=== PATIENT | female | born 1990 | race American Indian/Alaskan Native ===

== ENCOUNTER 2017-12-29 10:19 | Emergency (ER) | payer MEDICAID, OTHER ==
[2017-12-29 10:27] VITALS: BMI 35.4
[2017-12-29 10:29] VITALS: BP 124/89; PULSE 92; RESP 17; TEMP 99.1; O2SAT 99
--- NOTE | 2017-12-29 11:08 | ED PDOC ---
HPI: Female Pain Time Seen by Provider: 12/29/17 10:31 Chief Complaint (Nursing): Female Genitourinary Chief Complaint (Provider): bleeding in preg History Per: Patient Additional Complaint(s): Patient states she is currently 13 weeks . Complaints of vaginal bleeding beginning yesterday. States she was seen [place] [facility] [place]. Sex day prior Past Medical History Vital Signs: Last Vital Signs Temp 99.1 F 12/29/17 10:27 Pulse 92 H 12/29/17 10:27 Resp 17 12/29/17 10:27 BP 124/89 12/29/17 10:27 Pulse Ox 99 12/29/17 10:27 - Immunization History Hx Tetanus Toxoid Vaccination: No Hx Influenza Vaccination: No Hx Pneumococcal Vaccination: No - Home Medications Home Medications: Ambulatory Orders Medication Instructions Recorded Acetaminophen [Tylenol] 2 tab PO Q6H PRN #30 tab 06/16/14 Clindamycin 1% [Cleocin] 1 apful EXT BID #120 ml 06/16/14 Ibuprofen 600 mg PO Q6H PRN #15 tab 06/16/14 Oseltamivir Phosphate [Tamiflu] 75 mg PO BID #9 cap 06/16/14 - Allergies Allergies/Adverse Reactions: Allergies Allergy/AdvReac Type Severity Reaction Status Date / Time No Known Allergies Allergy Verified 06/16/14 15:31 - ECG O2 Sat by Pulse Oximetry: 99 Disposition - Disposition
[2017-12-29 11:37] LABS: BASO % 0.3 % (0.0-2.0); EOS % 0.8 % (0.0-4.0); LYMPH # 1.8 K/uL (1.0-4.3); LYMPH % 32.7 % (20.0-40.0); MEAN CELL VOLUME 89.6 fl (81.0-99.0); MEAN CORPUSCULAR HEMOGLOBIN 30.8 pg (27.0-31.0); MEAN CORPUSCULAR HGB CONC 34.4 g/dL (33.0-37.0); MEAN PLATELET VOLUME 8.5 fl (7.2-11.7); MONO # 0.3 K/uL (0.0-0.8); MONO % 5.5 % (0.0-10.0); NEUT # 3.3 K/uL (1.8-7.0); NEUT % 60.7 % (50.0-75.0); NRBC % 0.1 % (0.0-0.0); RBC 4.22 Mil/uL (3.80-5.20); RED CELL DISTRIBUTION WIDTH 13.6 % (11.5-14.5); WHITE BLOOD COUNT 5.4 K/uL (4.8-10.8)
--- NOTE | 2017-12-29 13:05 | US ---
Date of service: 12/29/2017 PROCEDURE: Obstetrical ultrasound examination HISTORY: bleeding in preg COMPARISON: Not available TECHNIQUE: Transabdominal FINDINGS: There is a single live intrauterine gestation identified. Cephalic presentation. Grossly normal quantity of amniotic fluid. heart rate is 161 beats per minute. Fundal placenta. No evidence of placenta previa. Cervix closed and measures approximately 4 cm in length. No perigestational hemorrhage identified. biometry demonstrates ultrasound age of 13 weeks 3 days. The MATTEO by ultrasound is 07/03/2018. anatomic evaluation is grossly limited by the early age of gestation IMPRESSION: Single live intrauterine gestation of approximately 13 weeks 3 days without gross anatomic abnormality. Evaluation of anatomy is grossly limited due to early gestational age. heart rate 161. Cervix long and closed. Fundal placenta. No previa.
== END 2017-12-29 13:24 | disposition home or self-care (01) ==
LOC: H.ER 10:19
DX: O20.9 Hemorrhage in early pregnancy, unspecified (principal); Z3A.13 13 weeks gestation of pregnancy

== ENCOUNTER 2017-12-31 08:52 | Emergency (ER) | payer OTHER ==
[2017-12-31 08:58] VITALS: BMI 35.6
[2017-12-31] MEDS ORDERED: Lactated Ringer's 1,000 ML IV SCH (09:45)
--- NOTE | 2017-12-31 10:12 | ED PDOC ---
HPI: Abdomen Time Seen by Provider: 12/31/17 09:25 Chief Complaint (Nursing): Abdominal Pain History Per: Patient Additional Complaint(s): Pt. states on Tuesday she developed vaginal bleeding. States she is currently 13 weeks . Pt. [place] [facility] [place] and blood work. Pt. states she was informed that all was normal and subsequently discharged. Bl eeding continued the following day and she was advised by Dr. Anguiano's office (her OBGYN) to come to [facility] ED. She had another US done along with blood work. All was normal therefore she was discharged. She f/u in Dr. Anguiano's office yesterday and had another US and was told that baby was fine and had normal HR. This morning she developed R sided pelvic pain. States bleeding is still present but has decreased since the onset. Reports no hx of previous ectopic pregnancies. Denies fever, dysuria, hematuria, vomiting, diarrhea. Abnormal Vaginal Bleeding: Yes Last Menstral Period: 09/29/2017 : 3 Para: 1 Miscarriage: 1 (elective ) Past Medical History Reviewed: Historical Data, Nursing Documentation, Vital Signs Vital Signs: Last Vital Signs Temp 98.8 F 12/31/17 08:56 Pulse 113 H 12/31/17 08:56 Resp 16 12/31/17 08:56 BP 114/65 12/31/17 08:56 Pulse Ox 100 12/31/17 08:56 - Surgical History Surgical History: No Surg Hx - Family History Family History: States: No Known Family Hx - Immunization History Hx Tetanus Toxoid Vaccination: No Hx Influenza Vaccination: No Hx Pneumococcal Vaccination: No - Home Medications Home Medications: Ambulatory Orders Medication Instructions Recorded Acetaminophen [Tylenol] 2 tab PO Q6H PRN #30 tab 06/16/14 Oseltamivir Phosphate [Tamiflu] 75 mg PO BID #9 cap 06/16/14 RX: Clindamycin 1% [Cleocin] 1 apful EXT BID #120 ml 06/16/14 RX: Ibuprofen 600 mg PO Q6H PRN #15 tab 06/16/14 Doxylamine/Pyridoxine HCl (B6) 1 each PO HS PRN #30 tablet. 12/31/17 [Bart Almonte 10-10 mg Tablet] - Allergies Allergies/Adverse Reactions: Allergies Allergy/AdvReac Type Severity Reaction Status Date / Time No Known Allergies Allergy Verified 06/16/14 15:31 Review of Systems ROS Statement: Except As Marked, All Systems Reviewed And Found Negative Genitourinary Female: Positive for: Vaginal Bleeding, Pelvic Pain Physical Exam - Physical Exam Appears: Positive for: Well, Non-toxic, In Acute Distress (mild painful distress) Skin: Positive for: Normal Color, Warm. Negative for: Rash Eye Exam: Positive for: Normal appearance Respiratory: Positive for: Normal Breath Sounds. Negative for: Respiratory Distress Gastrointestinal/Abdominal: Positive for: Normal Exam, Soft, Tenderness (R sided pelvic tenderness). Negative for: Guarding, Rebound Back: Positive for: Normal Inspection. Negative for: L CVA Tenderness, R CVA Tenderness Neurologic/Psych: Positive for: Alert, Oriented (x3). Negative for: Aphasia, Facial Droop - Laboratory Results Result Diagrams: 12/31/17 12:30 12/31/17 12:30 - ECG O2 Sat by Pulse Oximetry: 100 - Progress ED Course And Treament: Labs, TVUS ordered, IV LR bolus x 1 ordered.. Previous records reviewed along with corresponding diagnostic results. 1039 Pt. began vomiting after taking Tylenol. Reglan 10mg IVPB ordered. 1310 On re-evaluation, pt. sleeping comfortably. Easily arousable. Reports complete relief of abd/pelvic pain and nausea. States she is feeling much better. Pending US. Further reports that her blood type is A+ and she has records with [place] [facility] confirming her blood type to be A+. 1330 TVUS: Single intrauterine live with ultrasound estimated gestational age of 14 weeks 0 day +/-1 week 0 day. Pt. informed of results. Advised to f/u with Dr. Anguiano for further evaluation. Case d/w Dr. Rashid, OBGYN salon designer, who agrees with plan and care. Disposition - Clinical Impression Clinical Impression: Abdominal pain in - Patient ED Disposition Is Patient to be Admitted: No - Disposition Referrals: Jorge Alberto Slater, DNP, PROVIDER RELATIONS ADVOCATE [Primary Care Provider] - Phani Anguiano MD [Staff Provider] - Disposition: Routine/Home Disposition Time: 13:40 Condition: IMPROVED Prescriptions: Doxylamine/Pyridoxine HCl (B6) [Bart Almonte 10-10 mg Tablet] 1 each PO HS PRN #3 0 tablet. PRN Reason: Nausea/Vomiting Instructions: Nausea and Vomiting of (DC), Symptoms, Bleeding With (DC) Forms: [facility] (Bahraini) Print Language: KAZAKH
[2017-12-31 12:56] LABS: BASO % 0.2 % (0.0-2.0); HEMOGLOBIN 13.5 g/dL (12.0-16.0); LYMPH # 0.8 K/uL (1.0-4.3); LYMPH % 6.4 % (20.0-40.0); MEAN CELL VOLUME 90.2 fl (81.0-99.0); MEAN CORPUSCULAR HEMOGLOBIN 30.2 pg (27.0-31.0); MEAN CORPUSCULAR HGB CONC 33.5 g/dL (33.0-37.0); MEAN PLATELET VOLUME 9.4 fl (7.2-11.7); MONO # 0.6 K/uL (0.0-0.8); MONO % 5.1 % (0.0-10.0); NEUT # 10.8 K/uL (1.8-7.0); NEUT % 88.3 % (50.0-75.0); PLATELET COUNT 244 K/uL (130-400); RBC 4.48 Mil/uL (3.80-5.20); RED CELL DISTRIBUTION WIDTH 13.5 % (11.5-14.5); WHITE BLOOD COUNT 12.2 K/uL (4.8-10.8)
[2017-12-31 13:05] LABS: ALBUMIN 3.8 g/dL (3.5-5.0); ALT/SGPT 24 U/L (9-52); AST/SGOT 20 U/L (14-36); BLOOD UREA NITROGEN 6 mg/dl (7-17); CALCIUM 9.4 mg/dL (8.4-10.2); GFR NON-AFRICAN AMERICAN > 60
--- NOTE | 2017-12-31 13:33 | US ---
Date of service: 12/31/2017 PROCEDURE: OB Pelvic Ultrasound HISTORY: R sided pelvic pain LMP: 09/29/2017 COMPARISON: Comparison is made with 12/29/2017 FINDINGS: UTERUS: Gestational sac: Single intrauterine gestation. Heart rate: 167 bpm. age (Ultrasound estimated): 14 weeks 0 day +/-1 week 0 day Cathy-gestational hemorrhage: None. Date of delivery (Ultrasound estimated) : 07/01/2018 Placenta is noted at the posterior wall CERVIX: Measures 4.1 cm. Long and closed. No cervical abnormality seen. RIGHT OVARY: Measures 3.4 x 2.5 x 2.8 cm. No mass lesion. Normal flow. LEFT OVARY: Measures 3.2 x 2.7 x 2.7 cm. No solid mass. Normal flow. FREE FLUID: None. OTHER FINDINGS: None. IMPRESSION: Single intrauterine live with ultrasound estimated gestational age of 14 weeks 0 day +/-1 week 0 day. Estimated date of delivery by ultrasound is 07/01/2018.
[2017-12-31 14:16] VITALS: RESP 17
[2017-12-31 14:40] LABS: BANDS 2 % (0-2); LYMPHOCYTE 7 % (20-50); MONOCYTE 2 % (0-10); NEUTROPHIL 89 % (42-75); PLATELET ESTIMATE NORMAL (NORMAL); TOTAL CELLS COUNTED 100
[2017-12-31 14:41] LABS: ANISOCYTOSIS SLIGHT; OVALOCYTES SLIGHT; POIKILOCYTOSIS SLIGHT; TEARDROP CELLS SLIGHT
[2017-12-31 15:13] VITALS: BP 102/68; PULSE 85; TEMP 98.3
[2017-12-31 19:14] VITALS: O2SAT 100
== END 2017-12-31 15:13 | disposition home or self-care (01) ==
LOC: H.ER 08:52
DX: O26.892 Other specified pregnancy related conditions, second trimester (principal); R10.2 Pelvic and perineal pain; Z3A.14 14 weeks gestation of pregnancy; R11.0 Nausea
CPT/HCPCS: 76815; 80053; 81025; 84702; 85025; 86850; 86900; 99282; J2765; J7120

== ENCOUNTER 2018-06-29 16:47 | Inpatient (IN) | payer OTHER ==
[2018-06-29] MEDS: Lactated Ringer's 1,000 ML IV SCH (17:00)
[2018-06-29 17:04] VITALS: BMI 39.4
[2018-06-29 18:03] LABS: BASO % 0.3 % (0.0-2.0); EOS # 0.1 K/uL (0.0-0.7); HEMOGLOBIN 11.7 g/dL (12.0-16.0); LYMPH # 2.2 K/uL (1.0-4.3); LYMPH % 35.1 % (20.0-40.0); MEAN CELL VOLUME 91.2 fl (81.0-99.0); MEAN PLATELET VOLUME 9.8 fl (7.2-11.7); MONO # 0.7 K/uL (0.0-0.8); MONO % 11.2 % (0.0-10.0); NEUT # 3.3 K/uL (1.8-7.0); NEUT % 52.4 % (50.0-75.0); NRBC % 0.3 % (0.0-0.0); RBC 3.79 Mil/uL (3.80-5.20); RED CELL DISTRIBUTION WIDTH 13.8 % (11.5-14.5); WHITE BLOOD COUNT 6.4 K/uL (4.8-10.8)
[2018-06-29] MEDS ORDERED: Penicillin G Potassium 5 MU in Sodium Chloride 0.9% 50 ML IVPB ONE (19:20)
[2018-06-30] MEDS: Lactated Ringer's 1,000 ML IV SCH ×2 (01:00→09:02)
[2018-07-01] MEDS: Lactated Ringer's 1,000 ML IV ONE ×2 (03:00→04:00)
[2018-07-01] MEDS ORDERED: Bupivacaine HCl 0.5% PF (30 ml) Inj ONE (04:21)
[2018-07-01] MEDS ORDERED: Fentanyl/Bupivacaine HCl 250 ML EPI ONE (04:22)
[2018-07-01] MEDS: Lactated Ringer's 1,000 ML IV SCH (05:21)
[2018-07-01] MEDS ORDERED: Oxytocin 30 UNIT in NS 500 ml 30 UNITS/500 ML BAG IV ONE ×2 (09:19→09:32)
[2018-07-01] MEDS ORDERED: Penicillin G Potassium 5 MU in Sodium Chloride 0.9% 50 ML IVPB ONE (10:07)
[2018-07-01] MEDS ORDERED: Penicillin G 5 Million Unit Vial IVPB ONE (11:03)
[2018-07-01] MEDS ORDERED: Sodium Chloride 0.9% 1,000 ML IV SCH (13:00)
--- NOTE | 2018-07-01 13:04 | OBPN ---
Datetime: 07/01/2018 12:50 IP Progress Impression: Reassuring heart rate IP Informed Consent Obtain: Vaginal Delivery IP Procedures: Intrauterine Pressure Catheter; Amnio Infusion IP Progress Plan: Continue present management; Augmentation; Anticipate Vaginal Delivery Pool Provider: Positive Membranes, Provider: Ruptured Amniotic Fluid Color, Provider: Clear Contraction Comments Provider: 4-5m FHR - Baseline A Provider: 130 Presentation-Admit: Vertex IP Progress Note Comment: NOtified that she had SROM at 10:30am. She was 5-6cm. Pitocin at 1mil/h. ..had a Temp 100.0. She has some variable decels. SVE 7-8cm Assessment: Active phase of labor Variable decels with recovery - Hx Oligohydramnios Hx GBS bacteruria PLAN: discussion with pt about condition, labor progresss,medications with risks/complications. S he understood and her questions answered. IUPC placed; start amnioinfusion NS over 1h then 125cc/h.. .O2; left leteral position...monitor progress NICHD Accel Fetus A IP Provider: [id number] FHR Category Provider Fetus A: Category II NICHD Variability Prov Fetus A: Moderate 6-25bpm Dilatation, Provider: 7-8 Effacement, Provider: 100 Station, Provider: -1 NICHD Decel Fetus A IP Provider: Variable Datetime: 06/30/2018 08:55 IP Progress Impression Other: Induction for oligohydramnios Datetime: 06/29/2018 17:14 Vital Signs Provider: Reviewed; Within Normal Limits Datetime: 06/29/2018 17:09 Gestation - Est Wks by US: 39.0
[2018-07-01] MEDS ORDERED: Lidocaine 1% Inj (20ml) ONE ×2 (14:19→15:16)
[2018-07-01] MEDS ORDERED: Oxycodone/Acetaminophen 5/325 mg Tab PO PRN ×4 (15:56→18:58)
[2018-07-01] MEDS ORDERED: Benzocaine/Menthol SPRAY TOP PRN ×2 (15:56→18:58)
[2018-07-01] MEDS: OXYTOCIN/0.9 % NS 20 UNIT/1,000 ML BAG IV SCH (16:20)
[2018-07-01] MEDS ORDERED: SODIUM CHLORIDE 0.9% IV ONE (18:26)
[2018-07-01] MEDS ORDERED: [UNRECOGNIZED DRUG - OTHER] IV ONE (18:26)
[2018-07-01] MEDS ORDERED: OXYTOCIN/0.9 % NS 20 UNIT/1,000 ML BAG IV SCH (18:58)
[2018-07-02 08:01] LABS: BASO % 0.4 % (0.0-2.0); EOS # 0.1 K/uL (0.0-0.7); EOS % 0.6 % (0.0-4.0); HEMOGLOBIN 12.4 g/dL (12.0-16.0); LYMPH # 2.7 K/uL (1.0-4.3); MEAN CELL VOLUME 92.7 fl (81.0-99.0); MEAN CORPUSCULAR HEMOGLOBIN 30.7 pg (27.0-31.0); MEAN CORPUSCULAR HGB CONC 33.1 g/dL (33.0-37.0); MEAN PLATELET VOLUME 9.5 fl (7.2-11.7); MONO # 0.9 K/uL (0.0-0.8); MONO % 8.2 % (0.0-10.0); NEUT % 65.8 % (50.0-75.0); NRBC % 0.1 % (0.0-0.0); RBC 4.03 Mil/uL (3.80-5.20); RED CELL DISTRIBUTION WIDTH 14.1 % (11.5-14.5); WHITE BLOOD COUNT 10.6 K/uL (4.8-10.8)
--- NOTE | 2018-07-02 10:11 | OBDS ---
DELIVERY PERSONNEL Delivery Doctor: Yusuf Naik DO Supervisor Pre Wave: Zuly Iqbal RN MATERNAL INFORMATION Delivery Anesthesia: Epidural Medications in Delivery: pitocin 30units in IV 0.9%NS 500ml infusing at 999/hr Placenta Cultured: No Maternal Complications: None Provider Comments: Over intact perineum, of live male from [facility] presentation. Two losse nuchal cords noted and reduced. Infant was placed on mother's chest for skin to skin. 9,9. Placenta was deliveed intact spontaneously. She remained stable Fluid measurement prio to delivey 600cc...after delivery 700cc...EBL 100cc. LABOR SUMMARY EDC: 07/06/2018 00:00 No. Babies in Womb: 1 Attempted: No Labor Anesthesia: Epidural LABOR INFORMATION Reason for Induction: Oligohydramnios Onset of Labor: 07/01/2018 08:45 Complete Dilatation: 07/01/2018 15:00 Cervical Ripening Agents: Cytotec @ Oxytocin: Induction Group B Beta Strep: Positive Antibiotics # of Doses: 2 Antibiotics Time of Last Dose: 1500 Steroids Given: None Reason Steroids Not Administered: Not Applicable MEMBRANES Membranes Rupture Method: Spontaneous Rupture of Membranes: 07/01/2018 10:43 Length of Rupture (hrs): 4.93 Amniotic Fluid Color: Clear Amniotic Fluid Amount: Small Amniotic Fluid Odor: Normal STAGES OF LABOR Stage 1 hrs: 6 Stage 1 min: 15 Stage 2 hrs: 0 Stage 2 min: 39 Stage 3 hrs: 0 Stage 3 min: 12 Total Time in Labor hrs: 7 Total Time in Labor min: 6 VAGINAL DELIVERY Episiotomy: None Laceration Extension: N/A Laceration Repair: No Initial Vag Sponge Count: 5 laps with ring Final Vag Sponge Count: 5 laps with ring Initial Vag Sharps Count: 1 needle Final Vag Sharps Count: 1 needle Sponge Count Correct: Yes Sharps Count Correct: Yes Count Comment: One syringe, count correct and acknowledged by Dr. Naik. BABY A INFORMATION Delivery Date/Time: 07/01/2018 15:39 Method of Delivery: Vaginal Born in Route : No : N/A Forceps: N/A Vacuum Extraction: N/A Shoulder Dystocia : No SHOULDER DYSTOCIA BABY A Infant Delivery Date/Time: 07/01/2018 15:39 PRESENTATION/POSITION BABY A Presentation: Cephalic Cephalic Presentation: Vertex Breech Presentation: N/A PLACENTA INFORMATION BABY A Placenta Delivery Time : 07/01/2018 15:51 Placenta Method of Delivery: Spontaneous Placenta Status: Delivered SCORES BABY A Heart Rate 1 min: >100 bpm Resp Effort 1 min: Good Cry Reflex Irritability 1 min: Cough or Sneeze or Pulls Away Muscle Tone 1 min: Active Motion Color 1 min: Body [place], Extremities Blue Resuscitation Effort 1 min: Tactile Stimulation SCORE 1 MIN: 9 Heart Rate 5 min: >100 bpm Resp Effort 5 min: Good Cry Reflex Irritability 5 min: Cough or Sneeze or Pulls Away Muscle Tone 5 min: Active Motion Color 5 min: Body [place], Extremities Blue Resuscitation Effort 5 min: N/A SCORE 5 MIN: 9 INFANT INFORMATION BABY A Gestational Age at Delivery: 39.2 Gestational Status: Term Infant Outcome : Liveborn Infant Condition : Stable Sex: Male IDENTIFICATION/MEDS BABY A ID Band Number: [id number] ID Band Location: Left Leg; Left Arm Vitamin K Given : Not Given Erythromycin Given: Not Given WEIGHT/LENGTH BABY A Infant Birthweight (gms): 3125 Weight (lb): 6 Infant Weight (oz): 14 CORD INFORMATION BABY A No. Cord Vessels: 3 Nuchal Cord : Around Neck x2, Loose Cord Blood Taken: Yes Infant Suction: None ASSESSMENT BABY A Infant Complications: Multiple Variable Decels; Oligohydramnios Physical Findings at Delivery: Within Normal Limits Respirations: Appears Normal Foot Drill Operator/ALS Called : No Care By: Dr. Mae Transferred To: Nursery
--- NOTE | 2018-07-02 10:12 | OBDS ---
DELIVERY PERSONNEL Delivery Doctor: Yusuf Naik DO Inspector Receiving: Zuly Iqbal RN MATERNAL INFORMATION Delivery Anesthesia: Epidural Medications in Delivery: pitocin 30units in IV 0.9%NS 500ml infusing at 999/hr Placenta Cultured: No Maternal Complications: None Provider Comments: Over intact perineum, of live male from [facility] presentation. Two losse nuchal cords noted and reduced. Infant was placed on mother's chest for skin to skin. 9,9. Placenta was deliveed intact spontaneously. She remained stable Fluid measurement prio to delivey 600cc...after delivery 700cc...EBL 100cc. LABOR SUMMARY EDC: 07/06/2018 00:00 No. Babies in Womb: 1 Attempted: No Labor Anesthesia: Epidural LABOR INFORMATION Reason for Induction: Oligohydramnios Onset of Labor: 07/01/2018 08:45 Complete Dilatation: 07/01/2018 15:00 Cervical Ripening Agents: Cytotec @ Cervical Ripening Agents: Cytotec @ 50mcg Cervical Ripening Agents: Cytotec @ (Annotations: 1st dose of cytotec 50mcg PO given @0935am) Cervical Ripening Agents: Cervidil (Annotations: 1st does of cervidil taken out by Dr iSlva @0855am .Vaginal exam /3,to start pt on cytotec) Cervical Ripening Agents: Cervidil (Annotations: Inserted by Dr. Anguiano ) Cervical Ripening Agents: Patient aware if she is closed the insertion of cervidil will be placed on her cervix. patient aware this medication will release hormones timely to help ripen and soften her cervix which will lead to dialtion. Patient aware this medication remains on cervix for 12 hours. It is recommended to void prior to insertion adn to remain in bed X2 hours after insertion. Patinet verbalized understanding. Oxytocin: Induction Group B Beta Strep: Positive Antibiotics # of Doses: 2 Antibiotics Time of Last Dose: 1500 Steroids Given: None Reason Steroids Not Administered: Not Applicable MEMBRANES Membranes Rupture Method: Spontaneous Rupture of Membranes: 07/01/2018 10:43 Length of Rupture (hrs): 4.93 Amniotic Fluid Color: Clear Amniotic Fluid Amount: Small Amniotic Fluid Odor: Normal STAGES OF LABOR Stage 1 hrs: 6 Stage 1 min: 15 Stage 2 hrs: 0 Stage 2 min: 39 Stage 3 hrs: 0 Stage 3 min: 12 Total Time in Labor hrs: 7 Total Time in Labor min: 6 VAGINAL DELIVERY Episiotomy: None Laceration Extension: N/A Laceration Repair: No Initial Vag Sponge Count: 5 laps with ring Final Vag Sponge Count: 5 laps with ring Initial Vag Sharps Count: 1 needle Final Vag Sharps Count: 1 needle Sponge Count Correct: Yes Sharps Count Correct: Yes Count Comment: One syringe, count correct and acknowledged by Dr. Naik. BABY A INFORMATION Delivery Date/Time: 07/01/2018 15:39 Method of Delivery: Vaginal Born in Route : No : N/A Forceps: N/A Vacuum Extraction: N/A Shoulder Dystocia : No SHOULDER DYSTOCIA BABY A Delivery Date/Time: 07/01/2018 15:39 PRESENTATION/POSITION BABY A Presentation: Cephalic Presentation: Cephalic Presentation: Cephalic Cephalic Presentation: Vertex Breech Presentation: N/A PLACENTA INFORMATION BABY A Placenta Delivery Time : 07/01/2018 15:51 Placenta Method of Delivery: Spontaneous Placenta Status: Delivered SCORES BABY A Heart Rate 1 min: >100 bpm Resp Effort 1 min: Good Cry Reflex Irritability 1 min: Cough or Sneeze or Pulls Away Muscle Tone 1 min: Active Motion Color 1 min: Body [place], Extremities Blue Resuscitation Effort 1 min: Tactile Stimulation SCORE 1 MIN: 9 Heart Rate 5 min: >100 bpm Resp Effort 5 min: Good Cry Reflex Irritability 5 min: Cough or Sneeze or Pulls Away Muscle Tone 5 min: Active Motion Color 5 min: Body [place], Extremities Blue Resuscitation Effort 5 min: N/A SCORE 5 MIN: 9 INFANT INFORMATION BABY A Gestational Age at Delivery: 39.2 Gestational Status: Term Infant Outcome : Liveborn Condition : Stable Infant Sex: Male IDENTIFICATION/MEDS BABY A ID Band Number: [id number] ID Band Location: Left Leg; Left Arm Vitamin K Given : Not Given Erythromycin Given: Not Given WEIGHT/LENGTH BABY A Birthweight (gms): 3125 Infant Weight (lb): 6 Weight (oz): 14 CORD INFORMATION BABY A No. Cord Vessels: 3 Nuchal Cord : Around Neck x2, Loose Cord Blood Taken: Yes Suction: None ASSESSMENT BABY A Infant Complications: Multiple Variable Decels; Oligohydramnios Physical Findings at Delivery: Within Normal Limits Respirations: Appears Normal Airworthiness Safety Inspector/ALS Called : No Infant Care By: Dr. Mae Transferred To: Nursery
--- NOTE | 2018-07-02 10:16 | OBPPN ---
Datetime: 07/02/2018 10:12 PP Pain Prov: Within normal limits PP Nausea Prov: Denies PP Flatus Prov: Yes PP BM Prov: No PP Breasts Prov: Normal PP Heart Prov: Normal PP Lungs Prov: Normal PP Abdomen/Uterus Prov: Normal PP Lochia Prov: Normal PP Vulva/Perineum Prov: Normal PP CVA Tenderness Prov: Normal PP Extremities Prov: Normal PP Progress Prov: Normal PP Impression Prov: Normal progression PP Plan Prov: Continue present management PP Progress Note Prov: She feels fine. no JEREZ no visual dist. After she had occc elevated BP H/H 12/37 A: S/P day 1 PLAN cont care anticiapte discharge tmrw Vital Signs Provider PP: Reviewed; Within Normal Limits
[2018-07-02] MEDS: OXYTOCIN/0.9 % NS 20 UNIT/1,000 ML BAG IV SCH (12:30)
--- NOTE | 2018-07-03 11:46 | OBPPN ---
Datetime: 07/03/2018 11:44 PP Pain Prov: Within normal limits PP Nausea Prov: Denies PP Flatus Prov: Yes PP Breasts Prov: Normal PP Heart Prov: Normal PP Lungs Prov: Normal PP Abdomen/Uterus Prov: Normal PP Lochia Prov: Normal PP Vulva/Perineum Prov: Normal PP CVA Tenderness Prov: Normal PP Extremities Prov: Normal PP Comments Phys Exam Prov: FUndus firm under umbilicus PP Impression Prov: Normal progression PP Plan Prov: Continue present management PP Progress Note Prov: Patient denies CP, no SOB, no N/V, tolerating Po diet, ambulating/voiding wel l, mild lochia A/P PPD #2 1. Discharge patient home 2. Discharge instructions reviewed IP PP Procedures: None Vital Signs Provider PP: Reviewed; Within Normal Limits
--- NOTE | 2018-07-03 11:46 | OBDCSUM ---
Datetime: 07/03/2018 10:56 Discharged to, Provider: Home Follow up at, Provider: Dr. VICTOR Disch Instr Activity: Normal activity Disch Instr Diet: Regular Discharge Diagnosis, Provider: Term Delivered Discharge Time: 07/03/2018 11:30 Follow up in weeks, Provider: 4-6 weeks Disch Referrals: None Disch Activity Restrictions: No exercising; No sexual activity; Nothing in vagina - [place], fuad torres
[2018-07-03 18:24] VITALS: BP 130/92; PULSE 68; RESP 20; TEMP 98.5; O2SAT 99
== END 2018-07-03 12:05 | disposition home or self-care (01) | DRG 806 ==
LOC: H.L&D 17:03 → H.OB/GYN 07-01 18:35
PROVIDERS: ADMIT Obstetrics & Gynecology; ATTEND Obstetrics & Gynecology
PROC: 4A1HXCZ Monitoring of Products of Conception, Cardiac Rate, External Approach (ICD-10-PCS; 2018-06-29)
PROC: 10E0XZZ Delivery of Products of Conception, External Approach (ICD-10-PCS; principal; 2018-07-01)
DX: O76 Abnormality in fetal heart rate and rhythm complicating labor and delivery (principal); O41.03X0 Oligohydramnios, third trimester, not applicable or unspecified; Z37.0 Single live birth; O99.824 Streptococcus B carrier state complicating childbirth; O69.81X0 Labor and delivery complicated by cord around neck, without compression, not applicable or unspecified; Z3A.39 39 weeks gestation of pregnancy